=== PATIENT | female | born 1995 | race Caucasian/White ===

== ENCOUNTER 2019-04-13 01:17 | Emergency (ER) | payer SELFPAY ==
[2019-04-13] MEDS ORDERED: LIDOCAINE 1% MPF 30 ML VIAL ONE (02:33)
--- NOTE | 2019-04-13 02:46 | EDPHYS ---
Physician Documentation [facility] Name: Josefina Chavira Age: 24 yrs Sex: Female : 1995 Arrival Date: 04/13/2019 Time: 01:22 Bed 18 Private MD: ED Physician Richard Le HPI: 04/13 01:50 This 24 yrs old Female presents to ER via Ambulatory with complaints of Boil. cp 01:50 The patient presents with an abscess of the right vaginal area. cp 01:50 Description: swollen, tense, painful. cp 01:50 Onset: The symptoms/episode began/occurred today. cp 01:50 Associated signs and symptoms: Pertinent negatives: discharge, drainage, fever. cp Modifying factors: the symptoms are aggravated by movement, pressure. Severity of symptoms: in the emergency department the symptoms are unchanged, despite home interventions. RESISTOR WINDER: 03:57 LMP N/A - Irregular menses jd3 Historical: - Allergies: 01:45 No Known Allergies; jd3 - Home Meds: 01:45 None [Active]; jd3 - PMHx: 01:45 None; jd3 - PSHx: 01:45 Cholecystectomy; jd3 - Immunization history:: Adult Immunizations up to date. - Social history:: Smoking status: Patient uses tobacco products, smokes one pack cigarettes per day. - Ebola Screening: : Patient negative for fever greater than or equal to 101.5 degrees Fahrenheit, and additional compatible Ebola Virus Disease symptoms. ROS: 02:00 Constitutional: Negative for body aches, chills, fever, poor PO intake. cp 02:00 Eyes: Negative for injury, pain, redness, and discharge. cp 02:00 Cardiovascular: Negative for chest pain, palpitations. 02:00 Respiratory: Negative for cough, shortness of breath, wheezing. 02:00 Abdomen/GI: Negative for abdominal pain, nausea, vomiting, and diarrhea. 02:00 Skin: Positive for abscess, of the right vaginal area. 02:00 All other systems are negative. Exam: 02:05 Constitutional: The patient appears in no acute distress, alert, awake, non-toxic, well cp developed, well nourished, obese. 02:05 Head/Face: Normocephalic, atraumatic. cp 02:05 Eyes: Periorbital structures: appear normal, Conjunctiva: normal, no exudate, no cp injection, Lids and lashes: appear normal, bilaterally. 02:05 ENT: External ear(s): are unremarkable, Nose: is normal, Mouth: Lips: moist, Oral mucosa: moist, Posterior pharynx: Airway: no evidence of obstruction, patent. 02:05 Chest/axilla: Inspection: normal, Palpation: is normal, no crepitus, no tenderness. 02:05 Cardiovascular: Rate: normal, Rhythm: 02:05 Respiratory: the patient does not display signs of respiratory distress, Respirations: normal, no use of accessory muscles. 02:05 Abdomen/GI: Inspection: abdomen appears normal, Palpation: abdomen is soft and non-tender, in all quadrants. 02:05 Skin: abscess, that is moderate sized, of the inner aspect right vulva, with fluctuance, that is moderate. Vital Signs: 01:45 BP 103 / 71; Pulse 77; Resp 16 S; Temp 98.8(O); Pulse Ox 97% on R/A; Weight 90.72 kg jd3 (R); Height 5 ft. 2 in. (157.48 cm) (R); Pain 7/10; 03:56 BP 106 / 67; Pulse 76; Resp 17 S; Pulse Ox 97% on R/A; jd3 01:45 Body Mass Index 36.58 (90.72 kg, 157.48 cm) jd3 Procedures: 02:54 I \T\ D: Incision and drainage was performed for an abscess of the right vulva Prepped cp with Betadine, Anesthetized with 5 ccs of mixture of 1% lidocaine w/o epi and 0.5% marcaine. Incised with #11 blade. Drained moderate amount purulent fluid. Cultures obtained. Packed with iodoform gauze, Dressing: sterile 4x4 gauze, the patient tolerated the procedure well. MDM: 01:36 Patient medically screened. cp 02:46 Data reviewed: vital signs, nurses notes, and as a result, I will discharge patient. cp 02:46 Counseling: I had a detailed discussion with the patient and/or guardian regarding: the cp historical points, exam findings, and any diagnostic results supporting the discharge/admit diagnosis, the need for outpatient follow up, an OB/Gyne specialist, to return to the emergency department if symptoms worsen or persist or if there are any questions or concerns that arise at home. Response to treatment: the patient's symptoms have markedly improved after treatment. 04/13 02:51 Order name: Wound Culture mt 04/13 02:44 Order name: I\T\D Setup; Complete Time: 02:45 cp 04/13 02:48 Order name: Urine Test (obtain specimen); Complete Time: 03:08 cp Administered Medications: 02:25 Drug: Marcaine (0.5 %) 30 ml {Note: given by PA. Meghna} Volume: 10 ml; Route: jd3 Infiltration; 03:20 Follow up: Response: No adverse reaction jd3 02:25 Drug: Lidocaine (1 %) 30 ml {Note: given by PA. Meghna} Volume: 20 ml; Route: jd3 Infiltration; 03:20 Follow up: Response: No adverse reaction jd3 03:17 Not Given (Other Intervention Used): Clindamycin 900 mg IM once jd3 03:17 Drug: Clindamycin 900 mg Route: IVPB; Infused Over: 30 mins; Site: right forearm; jd3 03:55 Follow up: Response: No adverse reaction; IV Status: Completed infusion; IV Intake: [id number] Disposition: 04/13/19 02:46 Discharged to Home. Impression: Abscess of vulva. - Condition is Stable. - Discharge Instructions: Bartholin Cyst or Abscess, Incision and Drainage. - Prescriptions for Clindamycin HCl 300 mg Oral Capsule - take 1 capsule by ORAL route every 6 hours for 10 days; 40 capsule. Bactrim DS 800- 160 mg Oral Tablet - take 1 tablet by ORAL route every 12 hours for 10 days; 20 tablet. Ibuprofen 800 mg Oral Tablet - take 1 tablet by ORAL route every 8 hours As needed take with food; 30 tablet. Tylenol- Codeine #3 300-30 mg Oral Tablet - take 2 tablets by ORAL route every 8 hours As needed; 15 tablet. - Medication Reconciliation Form, Thank You Letter, Antibiotic Education, Prescription Opioid Use form. - Follow up: Private Physician; When: 1 - 2 days; Reason: Wound Recheck, primary RESISTOR WINDER. - Problem is new. - Symptoms have improved. Signatures: Dispatcher [employer] EDMS Anselmo Jones PA PA cp Davies, Jonathon, RN RN jd3 Corrections: (The following items were deleted from the chart) 03:57 02:46 04/13/2019 02:46 Discharged to Home. Impression: Abscess of vulva. Condition is jd3 Stable. Forms are Medication Reconciliation Form, Thank You Letter, Antibiotic Education, Prescription Opioid Use. Follow up: Private Physician; When: 1 - 2 days; Reason: Wound Recheck, primary RESISTOR WINDER. Problem is new. Symptoms have improved. cp
--- NOTE | 2019-04-13 02:46 | ER ---
Nurse's Notes [facility] Name: Josefina Chavira Age: 24 yrs Sex: Female : 1995 Arrival Date: 04/13/2019 Time: 01:22 Bed 18 Private MD: Diagnosis: Abscess of vulva Presentation: 04/13 01:40 Presenting complaint: Patient states: "I have like a boil or cyst in my privates that jd3 really started hurting.". Transition of care: patient was not received from another setting of care. Onset of symptoms was April 13, 2019. Risk Assessment: Do you want to hurt yourself or someone else? Patient reports no desire to harm self or others. Initial Sepsis Screen: Does the patient meet any 2 criteria? No. Patient's initial sepsis screen is negative. Does the patient have a suspected source of infection? No. Patient's initial sepsis screen is negative. Care prior to arrival: None. 01:40 Method Of Arrival: Ambulatory jd3 01:40 Acuity: NADIA 4 jd3 TAPE CALENDER: 03:57 LMP N/A - Irregular menses jd3 Historical: - Allergies: 01:45 No Known Allergies; jd3 - Home Meds: 01:45 None [Active]; jd3 - PMHx: 01:45 None; jd3 - PSHx: 01:45 Cholecystectomy; jd3 - Immunization history:: Adult Immunizations up to date. - Social history:: Smoking status: Patient uses tobacco products, smokes one pack cigarettes per day. - Ebola Screening: : Patient negative for fever greater than or equal to 101.5 degrees Fahrenheit, and additional compatible Ebola Virus Disease symptoms. Screenin:57 Abuse screen: Denies threats or abuse. Nutritional screening: No deficits noted. jd3 Tuberculosis screening: No symptoms or risk factors identified. Fall Risk Ambulatory Aid- None/Bed Rest/Nurse Assist (0 pts). Gait- Normal/Bed Rest/Wheelchair (0 pts) Mental Status- Oriented to own ability (0 pts). Total Arnett Fall Scale indicates No Risk (0-24 pts). Assessment: 01:49 General: Appears in no apparent distress. uncomfortable, Behavior is calm, cooperative, jd3 appropriate for age. Pain: Complains of pain in groin Quality of pain is described as aching. Neuro: Level of Consciousness is awake, alert, obeys commands, Oriented to person, place, time, situation, Appropriate for age. Cardiovascular: Capillary refill < 3 seconds Patient's skin is warm and dry. Respiratory: Airway is patent Respiratory effort is even, unlabored, Respiratory pattern is regular, symmetrical. GI: No signs and/or symptoms were reported involving the gastrointestinal system. : Reports pain in her groin. EENT: No signs and/or symptoms were reported regarding the EENT system. Derm: Skin is intact, Skin is dry, Skin is normal, Skin temperature is warm. Musculoskeletal: Circulation, motion, and sensation intact. Range of motion: intact in all extremities. 02:30 Reassessment: Patient appears in no apparent distress at this time. Patient and/or jd3 family updated on plan of care and expected duration. Pain level reassessed. Patient is alert, oriented x 3, equal unlabored respirations, skin warm/dry/pink. 03:18 Reassessment: Patient appears in no apparent distress at this time. Patient and/or jd3 family updated on plan of care and expected duration. Pain level reassessed. Patient is alert, oriented x 3, equal unlabored respirations, skin warm/dry/pink. awaiting IV antibiotics to infuse before discharge. 03:57 Reassessment: Patient appears in no apparent distress at this time. Patient and/or jd3 family updated on plan of care and expected duration. Pain level reassessed. Patient is alert, oriented x 3, equal unlabored respirations, skin warm/dry/pink. Vital Signs: 01:45 BP 103 / 71; Pulse 77; Resp 16 S; Temp 98.8(O); Pulse Ox 97% on R/A; Weight 90.72 kg jd3 (R); Height 5 ft. 2 in. (157.48 cm) (R); Pain 7/10; 03:56 BP 106 / 67; Pulse 76; Resp 17 S; Pulse Ox 97% on R/A; jd3 01:45 Body Mass Index 36.58 (90.72 kg, 157.48 cm) [facility] ED Course: 01:22 Patient arrived in ED. es 01:36 Anselmo Jones PA is PHCP. cp 01:36 Richard Le MD is Attending Physician. cp 01:39 Garza, Gustavo, RN is Primary Nurse. jd3 01:41 Triage completed. jd3 01:49 Arm band placed on. jd3 01:58 Patient has correct armband on for positive identification. Placed in gown. Bed in low jd3 position. Call light in reach. Side rails up X 1. Adult w/ patient. 03:17 Inserted saline lock: 20 gauge in right forearm, using aseptic technique. jd3 03:55 No provider procedures requiring assistance completed. IV discontinued, intact, jd3 bleeding controlled, No redness/swelling at site. Pressure dressing applied. Administered Medications: 02:25 Drug: Marcaine (0.5 %) 30 ml {Note: given by PA. Meghna} Volume: 10 ml; Route: jd3 Infiltration; 03:20 Follow up: Response: No adverse reaction jd3 02:25 Drug: Lidocaine (1 %) 30 ml {Note: given by PA. Meghna} Volume: 20 ml; Route: jd3 Infiltration; 03:20 Follow up: Response: No adverse reaction jd3 03:17 Not Given (Other Intervention Used): Clindamycin 900 mg IM once jd3 03:17 Drug: Clindamycin 900 mg Route: IVPB; Infused Over: 30 mins; Site: right forearm; jd3 03:55 Follow up: Response: No adverse reaction; IV Status: Completed infusion; IV Intake: [id number] Intake: 03:55 IV: 50ml; Total: 50ml. jd3 Outcome: 02:46 Discharge ordered by . cp 03:56 Discharged to home ambulatory, with family. jd3 03:56 Condition: stable 03:56 Discharge instructions given to patient, friend, Instructed on discharge instructions, follow up and referral plans. medication usage, Demonstrated understanding of instructions, follow-up care, medications, Prescriptions given X 4. 03:57 Patient left the ED. jd3 Signatures: Veronica Polanco Corey, PA PA cp Davies, Jonathon, RN RN jd3
[2019-04-13] MEDS ORDERED: CLINDAMYCIN 900MG/D5W 900 MG/50 ML IVPB IV ONE (03:03)
[2019-04-13 12:48] VITALS: BP 106/67; O2SAT 97
[2019-04-13 12:49] VITALS: TEMP 98.8
== END 2019-04-13 03:57 | disposition home or self-care (01) ==
LOC: ER 01:17
PROC: 0U9MXZZ Drainage of Vulva, External Approach (ICD-10-PCS; principal; 2019-04-13)
DX: N76.4 Abscess of vulva (principal); F17.210 Nicotine dependence, cigarettes, uncomplicated
CPT/HCPCS: 87070; 87077; 87186; 87205; 96365; 99283